=== PATIENT | female | born 1940 | race Caucasian/White ===

== ENCOUNTER 2022-03-19 09:09 | Emergency (ER) | payer OTHER ==
[~2022-03-19 09:09] MED LIST: ATORVASTATIN CA20 MG PO; AZO CRANBERRY1 EAC1 PO; CALCIUM CARBON600 MG PO; CLOPIDOGREL75 MG PO; ECOTRIN81 MG PO; FISH OIL PO; MAGNESIUM OXIDE PO; MOBIC15 MG PO; NORCO 5-325 TA1 EACH PO; NORCO 7.5-3251 EACH PO; OMEPRAZOLE20 M1 PO; PRINIVIL20 MG PO
[2022-03-19 10:28] LABS: HEMOGLOBIN 13.9 gm/dl (12.3-15.3); RED BLOOD COUNT 4.56 M/UL (4.00-5.10); WHITE BLOOD COUNT 6.1 K/UL (4.5-11.0)
[2022-03-19 10:47] LABS: BUN/CREATININE RATIO 22 (0-10)
== END 2022-03-19 13:15 | disposition home or self-care (01) ==
LOC: ER1 09:09
PROVIDERS: Family Medicine
DX: I10 Essential (primary) hypertension (principal); R51.9 Headache, unspecified; I11.9 Hypertensive heart disease without heart failure; E78.00 Pure hypercholesterolemia, unspecified
CPT/HCPCS: 70450; 80053; 82550; 82553; 84484; 85025; 93005; 99284

== ENCOUNTER 2022-04-04 09:43 | Observation (INO) | payer OTHER ==
[~2022-04-04] VITALS: Ht 162.6 cm; Wt 65.9 kg
[~2022-04-04 09:43] MED LIST changes: +LISINOPRIL30 MG PO; -PRINIVIL20 MG PO
[2022-04-04 10:39] LABS: HEMOGLOBIN 13.5 gm/dl (12.3-15.3); RED BLOOD COUNT 4.43 M/UL (4.00-5.10); WHITE BLOOD COUNT 7.3 K/UL (4.5-11.0)
[2022-04-04 11:09] LABS: BUN/CREATININE RATIO 24 (0-10)
[2022-04-04] MEDS ORDERED: AMOX TR-K CLV1 EAC4 PO (15:09)
[2022-04-04] MEDS ORDERED: METOPROLOL SUCC25 MG PO (15:10)
[2022-04-04] MEDS ORDERED: FLONASE ALLER15.8 ML (15:10)
[2022-04-04] MEDS ORDERED: OFLOXACIN5 M1 EARRT (15:10)
[2022-04-04] MEDS ORDERED: TYLENOL 8 HOUR650 MG PO (15:11)
[2022-04-04] MEDS ORDERED: CETIRIZINE HCL10 MG PO (15:11)
[2022-04-04] MEDS ORDERED: CHELATED MAGNESIUM PO (15:12)
[2022-04-04] MEDS ORDERED: AZO CRANBERRY1 EAC1 PO (15:12)
[2022-04-05 06:53] LABS: HEMOGLOBIN 13.8 gm/dl (12.3-15.3); RED BLOOD COUNT 4.55 M/UL (4.00-5.10); WHITE BLOOD COUNT 5.9 K/UL (4.5-11.0)
[2022-04-05 07:19] LABS: BUN/CREATININE RATIO 20 (0-10)
[2022-04-05] MEDS ORDERED: PLAVIX75 MG PO (09:02)
[2022-04-05] MEDS ORDERED: ATORVASTATIN CA20 MG PO (09:02)
== END 2022-04-05 11:10 | disposition home or self-care (01) ==
LOC: ER1 09:43 → CDU 11:05 → MED SURG 4 11:05
PROVIDERS: Emergency Medicine; Physician Assistant Medical; ADMIT Internal Medicine Infectious Disease
DX: G45.9 Transient cerebral ischemic attack, unspecified (principal); I10 Essential (primary) hypertension; E78.5 Hyperlipidemia, unspecified; K21.9 Gastro-esophageal reflux disease without esophagitis; Z85.42 Personal history of malignant neoplasm of other parts of uterus
CPT/HCPCS: ECHO; 70450; 70496; 70498; 70551; 71045; 80048; 80053; 80061; 82550; 82553; 83735; 84484; 85025; 85027; 85610; 85730; 93005; 93306; 96374; 97161; 97165; 99285; G0378; J0360; Q9967